=== PATIENT | male | born 1960 | race Caucasian/White ===

== ENCOUNTER → 2017-08-23 | Outpatient (CLI) | payer OTHER ==
[2017-08-23 13:00] LABS: HEMATOCRIT 45.1 % (42-52); MEAN CELL VOLUME 81.9 fL (80-100); MEAN CORPUSCULAR HEMOGLOBIN 28.9 pg (25-34); MEAN CORPUSCULAR HGB CONC 35.3 g/dl (32-36); MEAN PLATELET VOLUME 10.7 fL (7.4-10.4); PLATELET COUNT 217 K/uL (130-400); RED BLOOD COUNT 5.51 M/uL (4.7-6.1); WHITE BLOOD COUNT 7.09 K/uL (4.8-10.8)
[2017-08-23 13:24] LABS: LYME DISEASE AB IGG NEG (NEG); LYME DISEASE AB IGM NEG (NEG)
[2017-08-23 13:49] LABS: ESTIMATED AVERAGE GLUCOSE 108 mg/dl; HA1C FLAG Normal (Normal)
[2017-08-23 13:59] LABS: ALB/GLOB RATIO 1.2 (0.9-2); ALKALINE PHOSPHATASE 66 U/L (45-117); ALT/SGPT 26 U/L (12-78); AST/SGOT 16 U/L (15-37); BLOOD UREA NITROGEN 21 mg/dl (7-18); CALCIUM 8.8 mg/dl (8.5-10.1); CARBON DIOXIDE 29 mmol/L (21-32); CHLORIDE 104 mmol/L (98-107); CHOLESTEROL 163 mg/dl (0-200); CHOLESTEROL/HDL RATIO 3.9; CREATININE 0.84 mg/dl (0.60-1.40); GLUCOSE 96 mg/dl (70-99); HDL CHOLESTEROL 42 mg/dl; LDL CHOLESTEROL CALCULATED 101 mg/dl; SODIUM 137 mmol/L (136-145); TRIGLYCERIDES 99 mg/dl (0-150); VERY LOW DENSITY LIPOPROT CALC 20 mg/dl
== END | disposition home or self-care (01) ==
LOC: C.LABPVFM 09:22
PROVIDERS: ATTEND Internal Medicine
DX: Z00.00 Encounter for general adult medical examination without abnormal findings (principal); R73.01 Impaired fasting glucose; M25.50 Pain in unspecified joint